=== PATIENT | male | born 1975 | race Caucasian/White ===

== ENCOUNTER 2016-09-26 09:35 | Emergency (ER) | payer SELFPAY ==
[~2016-09-26] VITALS: Ht 185.4 cm; Wt 108.9 kg
[2016-09-26] MEDS ORDERED: LIDOCAINE 1% Multi-Dose 20 ML VIAL. ID ONE (10:00)
[2016-09-26] MEDS ORDERED: DIPHTH,PERTUSS(ACELL),TET TOX 0.5 ML DISP.SYRIN. VAX IM ONE (10:00)
--- NOTE | 2016-09-26 10:38 | PHYS DOC ---
Past Medical History Past Medical History: Hypertension Past Surgical History: Other Additional Past Surgical Histo: (L) ARM REPAIR, (R) ANKLE REPAIR Alcohol Use: None Drug Use: None Adult General Chief Complaint Chief Complaint: LACERATION/AVULSION [facility] HPI Patient is a 41 year old male with history of hypertension who presents today with left hand laceration. Patient states he was cutting a piece of cardboard and the knife went through his left hand. Review of Systems Review of Systems Constitutional: Denies fever or chills [] Eyes: Denies change in visual acuity, redness, or eye pain [] HENT: Denies nasal congestion or sore throat [] Respiratory: Denies cough or shortness of breath [] Cardiovascular: No additional information not addressed in HPI [] Musculoskeletal: Denies back pain or joint pain [] Integument: left hand laceration Neurologic: Denies headache, focal weakness or sensory changes [] Endocrine: Denies polyuria or polydipsia [] Current Medications Current Medications Current Medications Medications (Trade) Dose Ordered Sig/Jaylen Start Time Stop Time Status Last Admin Dose Admin Diphtheria/ Tetanus/Acell Pertussis (Boostrix) 0.5 ml ONCE ONCE 09/26/16 10:00 09/26/16 10:01 DC 09/26/16 09:58 0.5 ML Lidocaine HCl 10 ml 1X ONCE 09/26/16 10:00 09/26/16 10:01 DC 09/26/16 09:53 10 ML Allergies Allergies Allergies Coded Allergies Type Severity Reaction Last Updated Verified No Known Drug Allergies 11/20/14 No Physical Exam Physical Exam Constitutional: Well developed, well nourished, no acute distress, non-toxic appearance. [] HENT: Normocephalic, atraumatic, bilateral external ears normal, oropharynx moist, no oral exudates, nose normal. [] Eyes: PERRLA, EOMI, conjunctiva normal, no discharge. [] Neck: Normal range of motion, no tenderness, supple, no stridor. [] Skin: Webspace between the left thumb and index finger with a laceration approximately 2 cm long. There is no obvious tendon involvement. Full range of motion to the left hand and fingers. Adequate flexion and extension of the left thumb and index finger. Adequate radial, medial and ulnar sensation to the left fingers, and hand. +2 left radial pulse. Cap refill less than 2 seconds left upper extremity. Sensation intact left upper extremity. Back: No tenderness, no CVA tenderness. [] Extremities: No tenderness, no cyanosis, no clubbing, ROM intact, no edema. [] Neurologic: Alert and oriented X 3, normal motor function, normal sensory function, no focal deficits noted. [] Psychologic: Affect normal, judgement normal, mood normal. [] Current Patient Data Vital Signs Vital Signs Date Time Temp Pulse Resp B/P (MAP) Pulse Ox O2 Delivery O2 Flow Rate FiO2 09/26/16 10:42 97 16 142/91 (108) 97 09/26/16 09:39 97.9 Room Air 97.9 EKG EKG [] Radiology/Procedures Radiology/Procedures Indication: left hand laceration Procedure: The patient was placed in the appropriate position and anesthesia around the laceration was 1% of lidocaine. The area was then cleaned with 100 ML of normal saline and petit mal updated today. The laceration was closed with 5 interrupted sutures using 4. 0 Prolene. The wound area was then dressed with dressed with gauze Total repaired wound length: approx. 2 cm Other Items: none The patient tolerated the procedure well Course & Med Decision Making Course & Med Decision Making Pertinent Labs and Imaging studies reviewed. (See chart for details) Patient has laceration to the left hand that was closed as noted in procedures by me. He was provided wound care instructions as well as return precautions. Patient's laceration was closed as noted in procedures. He was given tetanus in the ED. Blood pressure on arrival to the ED was 162/106 with a heart rate of 110 on arrival to the ED. Patient was very worked upon arrival to the ED, just afraid of getting stitches we had to talk to him for a while to calm down. He also has not taken his blood pressure medicines for couple days. He was instructed to make sure he takes his medicine when he gets home. Blood pressure is 142/91 prior to discharge. Dragon Disclaimer Dragon Disclaimer This electronic medical record was generated, in whole or in part, using a voice recognition dictation system. Departure Departure Impression: Primary Impression: Hand laceration Additional Impression: Accelerated hypertension Disposition: 01 HOME, SELF-CARE Condition: STABLE Referrals: ROGERIO ALLEN MD (PCP) follow up with your doctor or the ED in 7-10 days for suture removal Patient Instructions: Laceration Care, Adult Additional Instructions: You have laceration of the left hand. We closed it with stitches. You can shower do not soak the laceration site. Apply neosporin to the area twice a day. Follow up with your doctor or the Ed in 7-10 days for suture removal. Watch for signs and symptoms of infection including but not limited to increased redness, warmth or odor drainage from the area and return to the ED if they occur. Problem Qualifiers Primary Impression: Hand laceration Encounter type: initial encounter Laterality: left Qualified Codes: S61.412A - Laceration without foreign body of left hand, initial encounter STEPHANIE SHELBY IGNITION SPECIALIST September 26, 2016 10:38
[2016-09-26 10:42] VITALS: BP 142/91
== END 2016-09-26 10:42 | disposition home or self-care (01) ==
LOC: ER 09:55
DX: S61.412A Laceration without foreign body of left hand, initial encounter (principal); I10 Essential (primary) hypertension; W26.0XXA Contact with knife, initial encounter; Y93.89 Activity, other specified; Y92.89 Other specified places as the place of occurrence of the external cause; Y99.8 Other external cause status
CPT/HCPCS: 12001; 90471; 90715; 99283-25